=== PATIENT | male | born 1950 | race Asian ===

== ENCOUNTER 2025-04-15 17:45 | Inpatient (IN) | payer BC, OTHER ==
[2025-04-15] MEDS ORDERED: ONDANSETRON 4 MG/2 ML VIAL ONE (17:54)
[2025-04-15] MEDS: ONDANSETRON 4 MG/2 ML VIAL IVPUSH ONE (18:03)
[2025-04-15] MEDS: SODIUM CHLORIDE 0.9% 500 ML INFUS.BAG IV ONE ×2 (18:04→19:50)
[2025-04-15 18:17] LABS: MCHC 33.2 g/dl (32.3-36.5); MEAN CELL VOLUME 92.6 fl (79.0-92.2); MEAN PLT VOLUME 10.4 fl (9.4-12.4); RDW 12.5 % (12.2-16.6)
[2025-04-15 18:26] LABS: INR 1.06 (0.83-1.09); PROTHROMBIN TIME (PATIENT) 11.7 SEC (9.7-13.0)
[2025-04-15 18:29] LABS: ACTIVATED PTT 28.1 SECONDS (25.2-36.5)
[2025-04-15 18:51] LABS: GLUCOSE,RANDOM 131.0 mg/dL (74-106)
[2025-04-15 18:52] LABS: TOT PROT 8.3 g/dl (6.4-8.2)
[2025-04-15 18:53] LABS: CO2 24.0 mmol/L (21-32)
[2025-04-15 18:54] LABS: ALK PHOS 120.0 U/L (40-150)
[2025-04-15 18:57] LABS: CREATININE 1.36 mg/dL (0.55-1.3); SGOT/AST 286.0 U/L (5-34); SGPT/ALT 170.0 U/L (0-55)
[2025-04-15 18:58] LABS: LACTIC ACID 3.1 mmol/L (0.4-2.0)
[2025-04-15] MEDS ORDERED: FAMOTIDINE 20 MG/50 ML IVPB 20 MG/50 ML MG IVPB ONE (19:24)
[2025-04-15] MEDS ORDERED: ACETAMINOPHEN INJECTION 100 ML ONE (19:24)
[2025-04-15] MEDS: ACETAMINOPHEN 1000 MG/100 ML BAG IVPB ONE (19:50)
[2025-04-15] MEDS: FAMOTIDINE 20 MG/50 ML IVPB 20 MG/50 ML MG IVPB ONE (19:50)
[2025-04-15 20:13] LABS: LACTIC ACID 2.7 mmol/L (0.4-2.0)
[2025-04-15] MEDS ORDERED: MORPHINE SULFATE 2 MG/ML SYRINGE ONE (20:28)
[2025-04-15] MEDS: morphine CARPU-JECT 2 MG/1 ML DISP.SYRIN IVPUSH ONE (20:30)
[2025-04-15] MEDS: SODIUM CHLORIDE 1,000 ML IV SCH (22:18)
[2025-04-15] MEDS: LEVOTHYROXINE NA 100 MCG TABLET (FP) PO ONE (22:19)
[2025-04-15] MEDS: RAMIPRIL 5 MG CAPSULE PO SCH (22:19)
[2025-04-15] MEDS: PANTOPRAZOLE 40 MG TABLET PO SCH (22:20)
[2025-04-15] MEDS: INSULIN ASPART SLIDING SCALE (NOVOLOG) 1 VIAL SQ SCH (22:20)
[2025-04-15] MEDS: CHOLECALCIFEROL (VIT D3) 1,000 UNIT (25 MCG) TABLET PO SCH (22:20)
[2025-04-15 22:34] VITALS: BMI 27.6
[2025-04-15] MEDS: morphine CARPU-JECT 2 MG/1 ML DISP.SYRIN IVPUSH PRN (22:58)
[2025-04-15] MEDS: NEBIVOLOL 5 MG TABLET (FP) PO ONE (22:58)
[2025-04-15] MEDS: PROCHLORPERAZINE INJECTION 10 MG/2 ML VIAL IVPB PRN (23:12)
[2025-04-16 08:34] LABS: MCHC 32.5 g/dl (32.3-36.5); MEAN CELL VOLUME 93.8 fl (79.0-92.2); MEAN PLT VOLUME 10.4 fl (9.4-12.4); RDW 12.7 % (12.2-16.6)
[2025-04-16 09:04] LABS: GLUCOSE,RANDOM 111 mg/dL (74-106)
[2025-04-16 09:06] LABS: CO2 24 mmol/L (21-32)
[2025-04-16 09:08] LABS: ALK PHOS 117 U/L (40-150)
[2025-04-16 09:10] LABS: SGOT/AST 416 U/L (5-34); SGPT/ALT 494 U/L (0-55)
[2025-04-16 09:11] LABS: CREATININE 1.69 mg/dL (0.55-1.3); LDL CHOLESTEROL (ONLY SJRH) 32 mg/dL (5-100)
[2025-04-16 09:44] LABS: TOT PROT 6.2 g/dl (6.4-8.2)
[2025-04-16] MEDS: MAGNESIUM SULFATE IN WATER 2 GM/50 ML IVPB IVPB ONE (11:11)
[2025-04-16] MEDS: SODIUM CHLORIDE 1,000 ML IV SCH (11:47)
[2025-04-16] MEDS: LACTATED RINGERS SOLUTION 1,000 ML/1,000 ML INFUS.BAG IV SCH ×3 (14:25→23:21)
[2025-04-16] MEDS: morphine CARPU-JECT 2 MG/1 ML DISP.SYRIN IVPUSH PRN ×2 (14:29→19:59)
[2025-04-16] MEDS ORDERED: CEFAZOLIN SODIUM 2 GM VIAL ONE (15:47)
[2025-04-16] MEDS: INDOMETHACIN 50 MG RECTAL SUPPOSITORY PR ONE (16:18)
[2025-04-16] MEDS: CEFAZOLIN SODIUM 2 GM in DEXTROSE 5%-WATER 100 ML IVPB ONE (16:23)
[2025-04-16] MEDS ORDERED: ONDANSETRON 4 MG/2 ML VIAL IVPUSH PRN ×2 (17:08→17:49)
[2025-04-16] MEDS: LACTATED RINGERS SOLUTION 1,000 ML IV SCH (18:37)
[2025-04-16] MEDS: WATER IVPB ONE (18:37)
[2025-04-16] MEDS: DEXTROSE 5% IVPB ONE (18:37)
[2025-04-16] MEDS: CEFAZOLIN SODIUM IVPB ONE (18:37)
[2025-04-16] MEDS: AMPICILLIN NA/SULBACTAM NA 3 GM in SODIUM CHLORIDE 100 ML IVPB SCH (18:45)
[2025-04-16 21:01] LABS: ABSOLUTE IMMATURE GRANULOCYTES 0.17 x10^3/uL (0.0-0.031); BASOPHILS # 0.03 x10^3/uL (0.01-0.08); EOSINOPHIL % 0.1 % (0.8-7.0); EOSINOPHILS # 0.01 x10^3/uL (0.04-0.54); MCHC 33.0 g/dl (32.3-36.5); MEAN CELL VOLUME 94.2 fl (79.0-92.2); MEAN PLT VOLUME 10.3 fl (9.4-12.4); MONOCYTE # 0.37 x10^3/uL (0.30-0.82); MONOCYTE % 2.2 % (5.3-12.2); RDW 12.9 % (12.2-16.6)
[2025-04-16] MEDS: NEBIVOLOL 5 MG TABLET (FP) PO SCH (21:10)
[2025-04-16] MEDS: ROSUVASTATIN CA 20 MG TABLET PO SCH (21:13)
[2025-04-16] MEDS ORDERED: ROSUVASTATIN CA 40 MG TABLET PO SCH (22:00)
[2025-04-16] MEDS ORDERED: NEBIVOLOL 5 MG TABLET (FP) PO SCH (22:00)
[2025-04-17] MEDS: PROCHLORPERAZINE INJECTION 10 MG/2 ML VIAL IVPB PRN (04:17)
[2025-04-17] MEDS: LEVOTHYROXINE NA 100 MCG TABLET (FP) PO SCH (06:30)
[2025-04-17] MEDS: INSULIN ASPART SLIDING SCALE (NOVOLOG) 1 VIAL SQ SCH (06:31)
[2025-04-17] MEDS ORDERED: LEVOTHYROXINE NA 100 MCG TABLET (FP) PO SCH (07:00)
[2025-04-17 08:07] LABS: RDW 12.9 % (12.2-16.6)
[2025-04-17 08:09] LABS: IMMATURE PLATELET FRACTION # 5.50 x10^3/uL; MCHC 32.8 g/dl (32.3-36.5); MEAN CELL VOLUME 93.6 fl (79.0-92.2); MEAN PLT VOLUME 10.9 fl (9.4-12.4)
[2025-04-17 08:31] LABS: GLUCOSE,RANDOM 159.0 mg/dL (74-106); TOT PROT 5.6 g/dl (6.4-8.2)
[2025-04-17 08:32] LABS: CO2 24.0 mmol/L (21-32)
[2025-04-17 08:36] LABS: SGOT/AST 128.0 U/L (5-34); SGPT/ALT 227.0 U/L (0-55)
[2025-04-17 08:37] LABS: CREATININE 1.44 mg/dL (0.55-1.3)
[2025-04-17 08:52] LABS: ALK PHOS 83.0 U/L (40-150)
[2025-04-17] MEDS: CHOLECALCIFEROL (VIT D3) 1,000 UNIT (25 MCG) TABLET PO SCH (09:59)
[2025-04-17] MEDS: amLODIPine BESYLATE 5 MG TABLET (FP) PO SCH (09:59)
[2025-04-17] MEDS ORDERED: HEPARIN NA (PORCINE) 5,000 UNITS/ML 1ML VIAL SQ SCH (10:00)
[2025-04-17] MEDS: RAMIPRIL 5 MG CAPSULE PO SCH (10:00)
[2025-04-17] MEDS: PANTOPRAZOLE 40 MG TABLET PO SCH (10:00)
[2025-04-17] MEDS ORDERED: RAMIPRIL 5 MG CAPSULE PO SCH (10:00)
[2025-04-17] MEDS ORDERED: amLODIPine BESYLATE 5 MG TABLET (FP) PO SCH (10:00)
[2025-04-17] MEDS: LACTATED RINGERS SOLUTION 1,000 ML/1,000 ML INFUS.BAG IV SCH (10:01)
[2025-04-18] MEDS: MELATONIN 5 MG TABLETS PO ONE (02:16)
[2025-04-18] MEDS: LACTATED RINGERS SOLUTION 1,000 ML/1,000 ML INFUS.BAG IV SCH ×2 (05:34→10:37)
[2025-04-18] MEDS: ALBUTEROL SO4 2.5/IPRATROPIUM 0.5 INH SOL 3 ML VIAL.NEB. NEB ONE (06:16)
[2025-04-18 08:39] LABS: MEAN CELL VOLUME 93.8 fl (79.0-92.2); MEAN PLT VOLUME 10.9 fl (9.4-12.4)
[2025-04-18 08:41] LABS: ABSOLUTE IMMATURE GRANULOCYTES 0.06 x10^3/uL (0.0-0.031); BASOPHILS # 0.04 x10^3/uL (0.01-0.08); EOSINOPHIL % 3.4 % (0.8-7.0); EOSINOPHILS # 0.43 x10^3/uL (0.04-0.54); IMMATURE PLATELET FRACTION # 5.80 x10^3/uL; MCHC 32.7 g/dl (32.3-36.5); MONOCYTE # 0.60 x10^3/uL (0.30-0.82); MONOCYTE % 4.7 % (5.3-12.2); RDW 12.6 % (12.2-16.6)
[2025-04-18 09:18] LABS: GLUCOSE,RANDOM 102 mg/dL (74-106); TOT PROT 6.3 g/dl (6.4-8.2)
[2025-04-18 09:19] LABS: CO2 25 mmol/L (21-32)
[2025-04-18 09:21] LABS: ALK PHOS 86 U/L (40-150)
[2025-04-18 09:23] LABS: SGPT/ALT 150 U/L (0-55)
[2025-04-18 09:24] LABS: CREATININE 1.32 mg/dL (0.55-1.3); SGOT/AST 71 U/L (5-34)
[2025-04-18] MEDS: ALBUTEROL SO4 2.5/IPRATROPIUM 0.5 INH SOL 3 ML VIAL.NEB. NEB PRN ×2 (11:03→15:40)
[2025-04-18] MEDS: FUROSEMIDE 40 MG/4 ML INJECTABLE VIAL IVPUSH ONE (11:39)
[2025-04-18] MEDS ORDERED: morphine CARPU-JECT 2 MG/1 ML DISP.SYRIN IVPUSH PRN (12:49)
[2025-04-18] MEDS ORDERED: PROCHLORPERAZINE INJECTION 10 MG/2 ML VIAL IVPB PRN (12:49)
[2025-04-18 14:48] LABS: GLUCOSE,RANDOM 128.0 mg/dL (74-106); TOT PROT 7.0 g/dl (6.4-8.2)
[2025-04-18 14:49] LABS: CO2 28.0 mmol/L (21-32)
[2025-04-18 14:51] LABS: ALK PHOS 95.0 U/L (40-150)
[2025-04-18 14:54] LABS: CREATININE 1.38 mg/dL (0.55-1.3); SGOT/AST 69.0 U/L (5-34); SGPT/ALT 148.0 U/L (0-55)
[2025-04-18] MEDS: INSULIN ASPART SLIDING SCALE (NOVOLOG) 1 VIAL SQ SCH (15:30)
[2025-04-18] MEDS: MAGNESIUM SULF 50% (8.12 MEQ/2 ML-1 GM VIAL) IVPB ONE (16:54)
[2025-04-18] MEDS: AMPICILLIN NA/SULBACTAM NA 3 GM in SODIUM CHLORIDE 100 ML IVPB SCH (16:59)
[2025-04-18] MEDS: NEBIVOLOL 5 MG TABLET (FP) PO SCH (21:08)
[2025-04-18] MEDS: ROSUVASTATIN CA 20 MG TABLET PO SCH (21:12)
[2025-04-18] MEDS: CHLORHEXIDINE GLUCONATE 4% CLEANSER FOR DECOLONIZATION TP SCH (21:18)
[2025-04-18] MEDS: MUPIROCIN 2% TOPICAL OINTMENT FOR DECOLONIZATION NS SCH (21:18)
[2025-04-18] MEDS ORDERED: MUPIROCIN 2% TOPICAL OINTMENT FOR DECOLONIZATION NS SCH (22:00)
[2025-04-18] MEDS ORDERED: CHLORHEXIDINE GLUCONATE 4% CLEANSER FOR DECOLONIZATION TP SCH (22:00)
[2025-04-19] MEDS: LEVOTHYROXINE NA 100 MCG TABLET (FP) PO SCH (06:05)
[2025-04-19 07:10] LABS: ABSOLUTE IMMATURE GRANULOCYTES 0.05 x10^3/uL (0.0-0.031); BASOPHILS # 0.03 x10^3/uL (0.01-0.08); EOSINOPHIL % 4.0 % (0.8-7.0); EOSINOPHILS # 0.40 x10^3/uL (0.04-0.54); MCHC 33.0 g/dl (32.3-36.5); MEAN CELL VOLUME 92.2 fl (79.0-92.2); MEAN PLT VOLUME 10.8 fl (9.4-12.4); MONOCYTE # 0.82 x10^3/uL (0.30-0.82); MONOCYTE % 8.2 % (5.3-12.2); RDW 12.4 % (12.2-16.6)
[2025-04-19 07:24] LABS: GLUCOSE,RANDOM 107.0 mg/dL (74-106); TOT PROT 6.5 g/dl (6.4-8.2)
[2025-04-19 07:25] LABS: CO2 27.0 mmol/L (21-32)
[2025-04-19 07:27] LABS: ALK PHOS 89.0 U/L (40-150)
[2025-04-19 07:29] LABS: CREATININE 1.23 mg/dL (0.55-1.3); SGOT/AST 48.0 U/L (5-34); SGPT/ALT 114.0 U/L (0-55)
[2025-04-19] MEDS: BISACODYL 5 MG TABLET.DR (FP) PO ONE (09:32)
[2025-04-19] MEDS: amLODIPine BESYLATE 5 MG TABLET (FP) PO SCH (09:32)
[2025-04-19] MEDS: CHOLECALCIFEROL (VIT D3) 1,000 UNIT (25 MCG) TABLET PO SCH (09:33)
[2025-04-19] MEDS: PANTOPRAZOLE 40 MG TABLET PO SCH (09:33)
[2025-04-19] MEDS: FUROSEMIDE 40 MG/4 ML INJECTABLE VIAL IVPUSH ONE (10:49)
[2025-04-19] MEDS: ENOXAPARIN NA (PORCINE) 40 MG/0.4 ML DISP.SYRIN SQ SCH (17:49)
[2025-04-19] MEDS: SENNOSIDES 8.8 MG/5 ML SYRUP PO SCH (21:05)
[2025-04-20 07:01] LABS: ABSOLUTE IMMATURE GRANULOCYTES 0.04 x10^3/uL (0.0-0.031); BASOPHILS # 0.05 x10^3/uL (0.01-0.08); EOSINOPHIL % 4.5 % (0.8-7.0); EOSINOPHILS # 0.40 x10^3/uL (0.04-0.54); MCHC 33.8 g/dl (32.3-36.5); MEAN CELL VOLUME 91.8 fl (79.0-92.2); MEAN PLT VOLUME 10.7 fl (9.4-12.4); MONOCYTE # 0.74 x10^3/uL (0.30-0.82); MONOCYTE % 8.4 % (5.3-12.2); RDW 12.4 % (12.2-16.6)
[2025-04-20 07:03] LABS: GLUCOSE,RANDOM 107.0 mg/dL (74-106); TOT PROT 7.4 g/dl (6.4-8.2)
[2025-04-20 07:04] VITALS: BP 145/75; PULSE 57; RESP 15; TEMP 97.7
[2025-04-20 07:04] LABS: CO2 25.0 mmol/L (21-32)
[2025-04-20 07:06] LABS: ALK PHOS 94.0 U/L (40-150)
[2025-04-20 07:09] LABS: SGOT/AST 46.0 U/L (5-34); SGPT/ALT 102.0 U/L (0-55)
[2025-04-20 07:45] LABS: CREATININE 1.09 mg/dL (0.55-1.3)
== END 2025-04-20 12:19 | disposition home or self-care (01) | DRG 439 ==
LOC: JER 17:45 → JERBED 20:24 → OBSVTOIN 20:32 → J5S 21:29 → JICU 04-18 12:45
PROVIDERS: ADMIT Hospitalist; ATTEND Internal Medicine Pulmonary Disease
PROC: 0F798DZ Dilation of Common Bile Duct with Intraluminal Device, Via Natural or Artificial Opening Endoscopic (ICD-10-PCS; 2025-04-16)
PROC: 0FC98ZZ Extirpation of Matter from Common Bile Duct, Via Natural or Artificial Opening Endoscopic (ICD-10-PCS; principal; 2025-04-16 14:45)
DX: K85.10 Biliary acute pancreatitis without necrosis or infection (principal); E87.20 Acidosis, unspecified; K91.61 Intraoperative hemorrhage and hematoma of a digestive system organ or structure complicating a digestive system procedure; N17.9 Acute kidney failure, unspecified; E03.9 Hypothyroidism, unspecified; E11.9 Type 2 diabetes mellitus without complications; E78.5 Hyperlipidemia, unspecified; I25.10 Atherosclerotic heart disease of native coronary artery without angina pectoris; R74.8 Abnormal levels of other serum enzymes; E80.7 Disorder of bilirubin metabolism, unspecified; I10 Essential (primary) hypertension; K80.50 Calculus of bile duct without cholangitis or cholecystitis without obstruction; R06.89 Other abnormalities of breathing; E87.70 Fluid overload, unspecified; Z95.5 Presence of coronary angioplasty implant and graft; Y83.8 Other surgical procedures as the cause of abnormal reaction of the patient, or of later complication, without mention of misadventure at the time of the procedure
CPT/HCPCS: 36415; 71045-TC-FY; 74181-TC; 76000-TC-FY; 76705-TC; 80048; 80053; 80061; 80076; 82248; 82962; 83036; 83605; 83690; 83735; 84100; 84436; 84443; 84484; 85025; 85610; 85730; 86140; 86301; 86850; 86900; 86901; 93005; 93010; 93306-TC; 94010; 94640; 94760; 99285-25; G0378

== ENCOUNTER 2025-06-22 06:22 | Day surgery (SDC) | payer OTHER, MEDICARE ==
[2025-06-21 11:19] VITALS: BMI 27.1
[2025-06-22 10:38] VITALS: TEMP 97.4
[2025-06-22 11:21] VITALS: PULSE 53
[2025-06-22 11:22] VITALS: BP 128/74; RESP 16
== END 2025-06-22 11:28 | disposition home or self-care (01) ==
LOC: JASU-ENDO 06:22
PROVIDERS: ATTEND Internal Medicine Gastroenterology
PROC: 0DBL8ZX Excision of Transverse Colon, Via Natural or Artificial Opening Endoscopic, Diagnostic (ICD-10-PCS; 2025-06-22)
PROC: 0DBN8ZX Excision of Sigmoid Colon, Via Natural or Artificial Opening Endoscopic, Diagnostic (ICD-10-PCS; 2025-06-22)
PROC: 3E0H8KZ Introduction of Other Diagnostic Substance into Lower GI, Via Natural or Artificial Opening Endoscopic (ICD-10-PCS; 2025-06-22)
PROC: 3E0H8GC Introduction of Other Therapeutic Substance into Lower GI, Via Natural or Artificial Opening Endoscopic (ICD-10-PCS; 2025-06-22)
PROC: 0DB98ZX Excision of Duodenum, Via Natural or Artificial Opening Endoscopic, Diagnostic (ICD-10-PCS; 2025-06-22)
PROC: 0DB78ZX Excision of Stomach, Pylorus, Via Natural or Artificial Opening Endoscopic, Diagnostic (ICD-10-PCS; 2025-06-22)
PROC: 0DB68ZX Excision of Stomach, Via Natural or Artificial Opening Endoscopic, Diagnostic (ICD-10-PCS; 2025-06-22)
PROC: 0DB48ZX Excision of Esophagogastric Junction, Via Natural or Artificial Opening Endoscopic, Diagnostic (ICD-10-PCS; 2025-06-22)
PROC: 0DBH8ZX Excision of Cecum, Via Natural or Artificial Opening Endoscopic, Diagnostic (ICD-10-PCS; principal; 2025-06-22 10:00)
DX: Z12.11 Encounter for screening for malignant neoplasm of colon (principal); D50.9 Iron deficiency anemia, unspecified; D12.7 Benign neoplasm of rectosigmoid junction; D12.3 Benign neoplasm of transverse colon; D12.0 Benign neoplasm of cecum; K64.8 Other hemorrhoids; K57.30 Diverticulosis of large intestine without perforation or abscess without bleeding; K29.50 Unspecified chronic gastritis without bleeding; K21.00 Gastro-esophageal reflux disease with esophagitis, without bleeding
CPT/HCPCS: 82962; 88305-TC; 88342-TC